=== PATIENT | female | born 1985 | race Caucasian/White ===

== ENCOUNTER 2017-04-15 13:11 | Emergency (ER) | payer BC ==
--- NOTE | 2017-04-15 13:56 | PD ---
HPI Chief Complaint Leaking fluid Date Seen: Apr 15, 2017 (Cary Alberts MD, R3) Travel History International Travel<30 Days: No Contact w/Intl Traveler<30Days: No (Cary Alberts MD, R3) History of Present Illness HPI Patient is a 31-year-old at 38-4/7 weeks gestation who presents today for leaking fluid. She states that last night she felt a puddle around 5 PM and has been ranging since then. She denies any vaginal bleeding or contractions. Positive movement. care with Dr. Sanchez. (Cary Alberts MD, R3) History Past Medical History Medical History: Denies Significant Hx (Cary Alberts MD, R3) Obstetric History Obstetric History (Cary Alberts MD, R3) Past Surgical History Surgical History: No Previous Surgery (Cary Alberts MD, R3) Family History Family History: Negative (Cary Alberts MD, R3) Social History Alcohol Use: No Tobacco Use: No Substance Abuse: No (Cary Alberts MD, R3) Allergies-Medications (Allergen,Severity, Reaction): Coded Allergies: No Known Allergies (Unverified , 04/15/17) Home Meds Active Scripts Metronidazole (Metronidazole) 500 Mg Tab, 500 MG PO BID for Infection, #14 TAB 0 Refills Prov:Cary Alberts MD, R3 04/15/17 Review of Systems Except as stated in HPI: all other systems reviewed are Neg General / Constitutional: No: Fever, Chills Eyes: No: Blurred Vision, Visual changes HENT: No: Headaches Cardiovascular: No: Chest Pain or Discomfort, Palpitations Respiratory: No: Cough, Short of Breath Gastrointestinal: No: Nausea, Vomiting, Abdominal Pain Genitourinary: Discharge, No: Dysuria, Hematuria, Pelvic Pain, Vaginal Bleeding Musculoskeletal: No: Edema Psychiatric: No: Substance Abuse (Cary Alberts MD, R3) Physical Exam Narrative GENERAL: Well-nourished, well-developed patient. SKIN: Warm and dry. HEAD: Normocephalic and atraumatic. EYES: No scleral icterus. No injection or drainage. ENT: No nasal drainage noted. Mucous membranes pink. Airway patent. NECK: Supple, trachea midline. No JVD. CARDIOVASCULAR: Regular rate and rhythm without murmurs, gallops, or rubs. RESPIRATORY: Breath sounds equal bilaterally. No accessory muscle use. ABDOMEN/GI: Abdomen soft, non-tender, bowel sounds present, no rebound, no guarding Gravid to 38 weeks size GENITOURINARY: Whitish/clear vaginal discharge with fishy odor External Genitalia: intact and normal in appearance BUS glands: normal Cervix: midposition Dilatation: 2 Effacement: 50 Station: -2 Presentation: vertex Membranes: intact Uterine Contractions: none FHT's: Category: I Baseline: 140 Reactive: + Variability: moderate Decels: none EXTREMITIES: No cyanosis or edema. BACK: Nontender without obvious deformity. No CVA tenderness. NEUROLOGICAL: Awake and alert. Motor and sensory grossly within normal limits. Normal speech. (Cary Alberts MD, R3) Data Data Vital Signs Reviewed: Yes Orders Orders Vital Signs (Adult) .ON ADMISSION (04/15/17 13:49) ^ Labor Status (04/15/17 13:49) ^ Non Stress Test (04/15/17 13:49) ^ Hydration (04/15/17 13:49) Pamg-1 Test .ONCE (04/15/17 13:49) (Cary Alberts MD, R3) MDM Medical Record Reviewed: Yes Narrative Course / MDM 31 year old at 38-4/7 weeks gestation. 1. IUP- Category I tracing, reassuring. 2. Leaking fluid- Amnisure negative, cervix 2/50/-2. Not in labor. Urine dip positive for large leuk esterace, large blood, trace protein, moderate bilirubin. No urinary symptoms, likely contaminant. 3. Vaginal discharge- physical exam consistent with BV. Will treat with Flagyl 500mg PO Q12H x 7 days. yadira Hammond (Cary Alberts MD, R3) Attending Attestation Patient seen and evaluated with resident under direct supervision, agree with assessment and plan. (Brayden Hammond MD) Diagnosis Diagnosis: Primary Impression: Bacterial vaginosis Additional Impression: 38 weeks gestation of Disposition: DISCHARGE HOME Condition: Stable Scripts Metronidazole (Metronidazole) 500 Mg Tab 500 MG PO BID for Infection, #14 TAB 0 Refills Prov: Cary Alberts MD, R3 04/15/17 Cary Alberts MD, R3 Apr 15, 2017 13:56 Brayden Hammond MD Apr 15, 2017 14:37
[2017-04-15] MEDS ORDERED: METR500T10 PO (14:01)
== END 2017-04-15 14:10 | disposition home or self-care (01) ==
LOC: HOBED 13:11
DX: O23.593 Infection of other part of genital tract in pregnancy, third trimester (principal); Z3A.38 38 weeks gestation of pregnancy; Z79.899 Other long term (current) drug therapy
CPT/HCPCS: 84112; 99283

== ENCOUNTER 2017-04-16 00:35 | Emergency (ER) | payer BC ==
[~2017-04-16 00:35] MED LIST: METR500T10 PO
--- NOTE | 2017-04-16 01:27 | PD ---
HPI Chief Complaint Contractions Date Seen: Apr 16, 2017 Time Seen: 01:00 Travel History International Travel<30 Days: No Contact w/Intl Traveler<30Days: No Known Affected Area: No History of Present Illness HPI 31-year-old 1 at 38-4/7 weeks' gestation who presented for increased contractions. Patient had been evaluated earlier for possible leakage of fluid which was ruled out. She was diagnosed with bacterial vaginosis at that time. She reports that she did get her medicine has taken 1 dose. After leaving earlier she states she began having contractions every 3 minutes. She denies any bleeding or leakage of fluid. Weeks Gestation: 38 Para: 0 : 1 History Past Medical History Medical History: Denies Significant Hx Obstetric History Obstetric History Primigravida Past Surgical History Surgical History: No Previous Surgery Family History Family History: Negative Social History Alcohol Use: No Tobacco Use: No Substance Abuse: No Allergies-Medications (Allergen,Severity, Reaction): Coded Allergies: No Known Allergies (Unverified , 04/15/17) Home Meds Active Scripts Metronidazole (Metronidazole) 500 Mg Tab, 500 MG PO BID for Infection, #14 TAB 0 Refills Prov:Cary Alberts MD, R3 04/15/17 Review of Systems Except as stated in HPI: all other systems reviewed are Neg Physical Exam Narrative GENERAL: Well-nourished, well-developed patient. SKIN: Warm and dry. HEAD: Normocephalic and atraumatic. EYES: No scleral icterus. No injection or drainage. ENT: No nasal drainage noted. Mucous membranes pink. Airway patent. NECK: Supple, trachea midline. No JVD. CARDIOVASCULAR: Regular rate and rhythm without murmurs, gallops, or rubs. RESPIRATORY: Breath sounds equal bilaterally. No accessory muscle use. BREASTS: Bilateral exam showed no masses , no retractions, no nipple discharge. ABDOMEN/GI: Abdomen soft, non-tender, bowel sounds present, no rebound, no guarding Gravid to [-] weeks size Fundal Height: [-] GENITOURINARY: External Genitalia: intact and normal in appearance BUS glands: [-] Cervix: [-] Dilatation: [-2] Effacement: [-70] Station: [-2-] Presentation: [Vertex-] Membranes: [intact ] Uterine Contractions: [-] FHT's: Category: [-] Baseline: [-] Reactive: [-Yes] Variability: [-] Decels: [-] EXTREMITIES: No cyanosis or edema. BACK: Nontender without obvious deformity. No CVA tenderness. NEUROLOGICAL: Awake and alert. Motor and sensory grossly within normal limits. Five out of 5 muscle strength in all muscle groups. Normal speech. Data Data Vital Signs Reviewed: Yes MDM Medical Record Reviewed: Yes Narrative Course / MDM Assessment: Primipara at 38+ weeks gestation with mild irregular contractions without cervical change Plan: The patient was given the option of staying and walking her since proceeding home for further observation of her contraction activity and she opted to go home. Diagnosis Diagnosis: Primary Impression: 38 weeks gestation of Additional Impression: Irregular contractions Disposition: DISCHARGE HOME Condition: Good Brayden Hammond MD Apr 16, 2017 01:26
== END 2017-04-16 01:47 | disposition home or self-care (01) ==
LOC: HOBED 00:35
DX: O47.1 False labor at or after 37 completed weeks of gestation (principal); Z3A.38 38 weeks gestation of pregnancy
CPT/HCPCS: 59025

== ENCOUNTER 2017-04-16 16:15 | Inpatient (IN) | payer BC ==
[2017-04-16] VITALS (85 sets, daily range): BP systolic 89–171; BP diastolic 44–93; PULSE 105–171; RESP 16–20; TEMP 97.6–101.8; O2SAT 92–100
[~2017-04-16] VITALS: Ht 165.1 cm; Wt 125.0 kg
[2017-04-16] MEDS ORDERED: LACTATED RINGER'S 1000 ML INJ 1,000 ML IV PRN (16:57)
[2017-04-16] MEDS ORDERED: LIDOCAINE HCL 1% 50 ML VIAL I-DERMAL PRN (17:00)
[2017-04-16] MEDS ORDERED: MINERAL OIL 10 ML VIAL TOPICAL PRN (17:00)
[2017-04-16] MEDS ORDERED: SODIUM CHLORID 0.9% 500 ML INJ 500 ML OTHER PRN (17:00)
[2017-04-16] MEDS ORDERED: ONDANSETRON HCL 4 MG/2 ML VIAL IV PRN (17:00)
[2017-04-16] MEDS ORDERED: LIDOCAINE HCL 1% 50 ML VIAL INFIL PRN (17:00)
[2017-04-16] MEDS ORDERED: CITRIC ACID-SODIUM CITRATE LIQ 30 ML UDC PO SCH (17:00)
[2017-04-16] MEDS ORDERED: OXYTOCIN 30 UNITS-500ML PREMIX 500 ML IV ONE (17:00)
--- NOTE | 2017-04-16 17:02 | HHI.HP ---
History & Physical H&P HPI History of Present Illness History of Present Illness HPI Chief Complaint Contractions Date Seen: Apr 16, 2017 Time Seen: 16:45 Travel History International Travel<30 Days: No Contact w/Intl Traveler<30Days: No Known Affected Area: No History of Present Illness HPI 31-year-old 1 at 38-4/7 weeks' gestation who presented for increased contractions. Patient had been evaluated earlier for possible leakage of fluid which was ruled out yesterday. She was evaluated again this am and no active labor. This afternoon the contractions are now 3-5 min and stronger. Unsure if any LOF. Scant bloody show. She was diagnosed with bacterial vaginosis yesterday and is on metronidazole. S Weeks Gestation: 38 Para: 0 : 1 History (Limited) History Past Medical History Medical History: Asthma: occasional albuterol usage prn CHTN - no medications, baseline labs and BP WNL Obesity Obstetric History Obstetric History Primigravida Past Surgical History Surgical History: No Previous Surgery Family History Family History: Negative Social History Alcohol Use: No Tobacco Use: No Substance Abuse: No Allergies-Medications Allergies-Medications (Allergen,Severity, Reaction): Coded Allergies: No Known Allergies (Unverified , 04/15/17) Home Meds Active Scripts Metronidazole (Metronidazole) 500 Mg Tab, 500 MG PO BID for Infection, #14 TAB 0 Refills Prov:Cary Alberts MD, R3 04/15/17 ROS Review of Systems Except as stated in HPI: all other systems reviewed are Neg Physical Exam Physical Exam Narrative GENERAL: Well-nourished, well-developed patient. SKIN: Warm and dry. HEAD: Normocephalic and atraumatic. EYES: No scleral icterus. No injection or drainage. ENT: No nasal drainage noted. Mucous membranes pink. Airway patent. NECK: , trachea midline. No JVD. CARDIOVASCULAR: Regular rate and rhythm without murmurs, gallops, or rubs. RESPIRATORY: Breath sounds equal bilaterally. No accessory muscle use. ABDOMEN/GI: Abdomen soft, non-tender, no rebound, no guarding Gravid EFW: 3500g GENITOURINARY: SVE: 7/90/-2 TOCO: UC q 3-5 min FHT's: Category: I Baseline: 145 Reactive: [-Yes] Variability: mod Decels: [-] EXTREMITIES: No cyanosis or edema. BACK: Nontender without obvious deformity. No CVA tenderness. NEUROLOGICAL: Awake and alert. Motor and sensory grossly within normal limits. Normal speech. Data Data Data Vital Signs Reviewed: Yes First BP systolic elevated during UC. Repeat BPs serially MDM MDM Medical Record Reviewed: Yes Narrative Course / MDM Assessment: G1P @ 38w5d. Active labor. GBS negative - Oly for prophylaxis Maternal obesity hx of asthma, stable Hx of CHTN, asymptomatic. Normal BP this and no current medications. Baseline labs were WNL. watch BPs, if elevated sent CMP and management per protocol. Plan: Admit D/w Dr. Hossein Rutledge,Robina Sears MD, MD Apr 16, 2017 17:02
[2017-04-16] MEDS ORDERED: SODIUM CHLOR 0.9% 1000 ML INJ 1,000 ML OTHER PRN (17:17)
[2017-04-16 17:37] LABS: AUTOMATED NEUTROPHIL # 25.2 TH/MM3 (1.8-7.7); BASOPHIL # 0.1 TH/MM3 (0-0.2); BASOPHIL % 0.2 % (0.0-2.0); HEMATOCRIT 37.4 % (35.0-46.0); LYMPH % 4.1 % (9.0-44.0); LYMPHOCYTE # 1.2 TH/MM3 (1.0-4.8); MEAN CELL VOLUME 92.9 FL (80.0-100.0); MEAN CORPUSCULAR HEMOGLOBIN 30.5 PG (27.0-34.0); MEAN CORPUSCULAR HGB CONC 32.8 % (32.0-36.0); NEUT % 89.7 % (16.0-70.0); PLATELET COUNT 258 TH/MM3 (150-450); RED BLOOD COUNT 4.02 MIL/MM3 (4.00-5.30); WHITE BLOOD COUNT 28.1 TH/MM3 (4.0-11.0)
[2017-04-16 17:38] LABS: HEMO FLAGS AUTO DIFF
[2017-04-16] MEDS ORDERED: LACTATED RINGER'S 1000 ML INJ 1,000 ML IV SCH (18:00)
[2017-04-16] MEDS ORDERED: PENICILLIN G POTASSIUM INJ 5,000,000 UNITS in SODIUM CHLORIDE 0.9% INJ 100 ML IV ONE (18:00)
[2017-04-16 18:07] LABS: SCAN/DIFF AUTO DIFF CONFIRMED
[2017-04-16 18:33] LABS: ANION GAP 11 MEQ/L (5-15); AST (GOT) 13 U/L (15-37); BLOOD UREA NITROGEN 12 MG/DL (7-18); CHLORIDE 106 MEQ/L (98-107); GLOMERULAR FILTRATION RATE 86 ML/MIN (>89); POTASSIUM 3.9 MEQ/L (3.5-5.1); SODIUM (NA) 136 MEQ/L (136-145)
[2017-04-16 18:34] LABS: ALT (GPT) 14 U/L (10-53)
[2017-04-16 18:37] LABS: ALKALINE PHOSPHATASE 186 U/L (45-117); TOTAL BILIRUBIN ADULT 0.5 MG/DL (0.2-1.0)
[2017-04-16] MEDS ORDERED: fentaNYL 2MCG-BUPIV 0.125% INJ 100 ML ONE (18:55)
[2017-04-16] MEDS ORDERED: ePHEDrine/NS 25 MG/5 ML SYR ONE (18:56)
[2017-04-16] MEDS ORDERED: PENICILLIN G POTASSIUM INJ 2,500,000 UNITS in SODIUM CHLORIDE 0.9% INJ 100 ML IV SCH (22:00)
[2017-04-16] MEDS ORDERED: metroNIDAZOLE 500 MG TAB PO SCH (22:00)
[2017-04-17] VITALS (28 sets, daily range): BP systolic 85–142; BP diastolic 36–68; PULSE 85–159; RESP 16–18; TEMP 98–99.4; O2SAT 92–99
[2017-04-17] MEDS ORDERED: ceFAZolin INJ 1,000 MG VIAL ONE (00:57)
[2017-04-17] MEDS ORDERED: ACETAMINOPHEN 1000 MG/100 ML 100 ML IV ONE (00:57)
[2017-04-17] MEDS ORDERED: DICLOFENAC SODIUM 37.5 MG/ML VIAL IV PUSH ONE (00:57)
[2017-04-17] MEDS ORDERED: OXYTOCIN 10 UNIT/ML AMP ONE (00:57)
[2017-04-17] MEDS ORDERED: LIDOCAINE 2%/EPINEPHrine 1:100,000 20ML MDV NERV BLOCK ONE (01:00)
[2017-04-17] MEDS ORDERED: ceFAZolin 2 GM PREMIX 50 ML IV SCH (01:15)
[2017-04-17] MEDS ORDERED: LACTATED RINGER'S 1000 ML IV ONE (01:15)
[2017-04-17] MEDS ORDERED: CITRIC ACID-SODIUM CITRATE LIQ 30 ML UDC PO SCH (01:15)
[2017-04-17] MEDS ORDERED: LACTATED RINGER'S 1000 ML IV SCH (01:15)
[2017-04-17] MEDS ORDERED: LACTATED RINGER'S 1000 ML INJ 1,000 ML IV ONE ×2 (01:30→02:00)
[2017-04-17] MEDS ORDERED: OXYTOCIN 10 UNIT/ML AMP IV ONE (01:30)
[2017-04-17] MEDS ORDERED: ONDANSETRON HCL 4 MG/2 ML VIAL IV PUSH ONE (01:30)
[2017-04-17] MEDS ORDERED: ACETAMINOPHEN 1000 MG/100 ML VIAL IV ONE ×2 (01:30→02:00)
[2017-04-17] MEDS ORDERED: SIMETHICONE 80 MG CHEWABLE TAB PO PRN (02:00)
[2017-04-17] MEDS ORDERED: ZOLPIDEM TARTRATE 5 MG TAB PO PRN (02:00)
[2017-04-17] MEDS ORDERED: ONDANSETRON HCL 4 MG/2 ML VIAL IV PUSH PRN (02:00)
[2017-04-17] MEDS ORDERED: SODIUM CHLORIDE 0.9% FLUSH 10 ML FLUSH IV FLUSH PRN (02:00)
[2017-04-17] MEDS ORDERED: OXYTOCIN 30 UNITS-500ML PREMIX 500 ML IV ONE (02:00)
[2017-04-17] MEDS ORDERED: MORPHINE SULFATE PF 5 MG/10 ML VIAL ONE ×2 (02:00→04:12)
--- NOTE | 2017-04-17 02:08 | PD.OB.DELI ---
Procedure Note Section Procedure Performed by Jennifer Catalan Procedure: Primary Low Transverse Sec Indication for delivery: Nonreassuring heart tracing (arrest of descent, tachycardia) Previous condition: None Informed consent obtained: For procedure Confirmed correct: Time-out taken Anesthesia: Epidural Medication prior to procedure: As documented in eMAR Urinary catheter: Inserted using sterile technique Sterile preparation: Duraprep Position: Supine Operative Features Skin Incision: Pfannenstiel Uterine Incision: Low transverse w/knife / scissors Membranes Ruptured: Previously (+mec) Presentation: Vertex Delivery date: Apr 17, 2017 Delivery time: 01:28 Delivery of : Assisted (vacuum) : Male One Minute : 5 Five Minute : 8 Weight: 7-12 Status of : Nursery present (O2 via mask) Placenta delivered: Sent to pathology Estimated blood loss: 650cc Procedure tolerated: Well Maternal Condition: Stable Condition: Stable Procedure in detail see dictation Jennifer Catalan MD Apr 17, 2017 02:08
[2017-04-17] MEDS ORDERED: ONDANSETRON HCL 4 MG/2 ML VIAL ONE (04:12)
[2017-04-17] MEDS ORDERED: LACTATED RINGER'S 1000 ML INJ 1,000 ML IV SCH (06:58)
--- NOTE | 2017-04-17 08:56 | HHI.OB ---
Subjective Post Operative Day: 0 Remarks doing well, some itching on face Objective Vitals/I&O Vital Signs Date Time Temp Pulse Resp B/P (MAP) Pulse Ox O2 Delivery O2 Flow Rate FiO2 04/17/17 04:20 115/53 (73) 04/17/17 04:20 98.3 04/17/17 04:20 97 18 97 04/17/17 04:15 108/36 (60) 04/17/17 03:20 95 18 98 04/17/17 03:20 98.4 04/17/17 03:20 122/58 (79) 04/17/17 03:05 98 18 122/57 (78) 04/17/17 03:05 98 04/17/17 03:00 18 04/17/17 02:50 94 18 119/59 (79) 04/17/17 02:50 99 04/17/17 02:35 97 16 107/53 (71) 04/17/17 02:35 99 04/17/17 02:30 101 100/58 (72) 04/17/17 02:24 99 04/17/17 02:23 103 118/54 (75) 04/17/17 02:15 98.4 114 18 04/17/17 02:05 112/52 (72) 04/17/17 02:00 18 99 04/17/17 02:00 109 04/17/17 02:00 118/62 (80) 04/17/17 01:28 92 30 04/17/17 00:40 118 04/17/17 00:40 117 04/17/17 00:35 125 04/17/17 00:35 123 04/17/17 00:31 135 142/63 (89) 04/17/17 00:30 123 04/17/17 00:30 123 04/17/17 00:25 125 04/17/17 00:20 159 04/17/17 00:15 129 04/17/17 00:10 120 04/17/17 00:05 124 04/17/17 00:00 121 04/16/17 23:55 126 04/16/17 23:50 142 04/16/17 23:45 120 127/58 (81) 04/16/17 23:45 108 04/16/17 23:40 107 04/16/17 23:36 98.3 8/26/17 23:35 116 04/16/17 23:30 105 04/16/17 23:30 131 04/16/17 23:30 130 04/16/17 23:30 16 04/16/17 23:25 124 04/16/17 23:25 123 04/16/17 23:20 124 04/16/17 23:20 124 04/16/17 23:15 121 122/52 (75) 04/16/17 23:15 121 04/16/17 23:15 16 04/16/17 23:15 130 04/16/17 23:00 120 124/53 (76) 04/16/17 23:00 121 04/16/17 23:00 18 04/16/17 22:55 143 04/16/17 22:55 125 04/16/17 22:50 124 04/16/17 22:50 124 04/16/17 22:48 123 107/56 (73) 04/16/17 22:46 132 89/59 (69) 04/16/17 22:45 114 04/16/17 22:45 18 04/16/17 22:40 114 04/16/17 22:35 122 04/16/17 22:31 124 123/61 (81) 04/16/17 22:30 18 04/16/17 22:30 120 04/16/17 22:30 117 04/16/17 22:25 119 100 04/16/17 22:25 119 04/16/17 22:20 113 100 04/16/17 22:20 112 04/16/17 22:16 128/50 (76) 04/16/17 22:16 110 04/16/17 22:15 122 04/16/17 22:15 131 100 04/16/17 22:10 137 04/16/17 22:10 132 100 04/16/17 22:05 114 100 04/16/17 22:05 115 04/16/17 22:00 148 04/16/17 22:00 121 100 04/16/17 22:00 98.0 04/16/17 22:00 117 04/16/17 22:00 135/93 (107) 04/16/17 21:55 116 04/16/17 21:55 115 100 04/16/17 21:50 110 04/16/17 21:50 111 100 04/16/17 21:45 122 100 04/16/17 21:45 124 04/16/17 21:45 118 04/16/17 21:45 122/62 (82) 04/16/17 21:40 120 04/16/17 21:40 119 100 04/16/17 21:35 111 04/16/17 21:35 109 100 04/16/17 21:30 118 107/49 (68) 04/16/17 21:30 120 04/16/17 21:30 100 04/16/17 21:30 121 04/16/17 21:25 120 100 04/16/17 21:25 121 04/16/17 21:23 16 04/16/17 21:23 123 109/58 (75) 04/16/17 21:20 122 04/16/17 21:20 122 04/16/17 21:20 100 04/16/17 21:15 127 04/16/17 21:15 100 04/16/17 21:15 115 16 120/53 (75) 04/16/17 21:15 119 04/16/17 21:10 118 04/16/17 21:10 100 04/16/17 21:10 118 04/16/17 21:05 123 04/16/17 21:05 123 04/16/17 21:05 100 04/16/17 21:00 100 04/16/17 21:00 118 04/16/17 21:00 115 04/16/17 21:00 115 134/59 (84) 04/16/17 20:55 125 04/16/17 20:55 100 04/16/17 20:55 123 04/16/17 20:54 18 04/16/17 20:50 100 04/16/17 20:50 129 04/16/17 20:50 129 04/16/17 20:45 100 04/16/17 20:45 171 04/16/17 20:45 129 18 118/49 (72) 04/16/17 20:45 127 04/16/17 20:40 137 04/16/17 20:40 136 04/16/17 20:40 100 04/16/17 20:35 121 04/16/17 20:35 100 04/16/17 20:35 121 04/16/17 20:31 111/69 (83) 04/16/17 20:31 113 04/16/17 20:30 99.5 04/16/17 20:30 18 04/16/17 20:30 114 04/16/17 20:30 113 04/16/17 20:30 100 04/16/17 20:25 120 04/16/17 20:25 100 04/16/17 20:25 118 04/16/17 20:20 116 04/16/17 20:20 116 04/16/17 20:20 99 04/16/17 20:16 134 114/46 (68) 04/16/17 20:15 98 04/16/17 20:15 18 04/16/17 20:15 116 04/16/17 20:15 116 04/16/17 20:10 124 04/16/17 20:10 122 04/16/17 20:06 127 04/16/17 20:06 127/44 (71) 04/16/17 20:05 123 04/16/17 20:05 123 04/16/17 20:01 135 143/45 (77) 04/16/17 20:00 20 04/16/17 20:00 119 04/16/17 19:55 124 04/16/17 19:55 122 04/16/17 19:50 123 04/16/17 19:50 123 04/16/17 19:45 119 04/16/17 19:45 117 154/71 (98) 04/16/17 19:45 121 04/16/17 19:45 20 04/16/17 19:40 109 04/16/17 19:40 110 04/16/17 19:35 112 04/16/17 19:35 113 04/16/17 19:30 108 140/72 (94) 04/16/17 19:30 108 04/16/17 19:30 20 04/16/17 19:30 108 04/16/17 19:25 112 04/16/17 19:25 113 04/16/17 19:21 111 144/76 (98) 04/16/17 19:20 114 04/16/17 19:20 116 04/16/17 19:15 121 04/16/17 19:10 115 04/16/17 19:10 110 120/79 (93) 04/16/17 19:10 112 04/16/17 19:05 126 04/16/17 19:05 125 04/16/17 19:03 123 142/87 (105) 04/16/17 19:00 128 04/16/17 19:00 124 04/16/17 18:55 18 04/16/17 18:45 16 04/16/17 18:40 114 04/16/17 18:35 110 04/16/17 18:30 108 04/16/17 18:25 114 04/16/17 18:20 114 04/16/17 18:15 109 151/71 (97) 04/16/17 18:15 106 04/16/17 18:11 101.8 18 04/16/17 18:10 114 04/16/17 18:05 111 04/16/17 18:00 108 04/16/17 16:33 128 171/78 (109) 04/16/17 16:32 97.6 18 Result Diagram: 04/16/17 1725 04/16/17 1725 Objective Remarks GENERAL: Well-nourished, well-developed patient. CARDIOVASCULAR: Regular rate and rhythm without murmurs, gallops, or rubs. RESPIRATORY: Breath sounds equal bilaterally. No accessory muscle use. ABDOMEN/GI: Abdomen soft, non-tender, bowel sounds present. Incision: dressing Clean, dry and intact. Fundus: Firm, non-tender at umbilicus. GENITOURINARY: Light to moderate bleeding. EXTREMITIES: No cyanosis or edema, non-tender, without signs of DVT. Medications and IVs Current Medications Medications (Trade) Dose Ordered Sig/Lalita Route Start Time Stop Time Status Last Admin Lactated Ringer's 1,000 ml @ 100 mls/hr Q10H IV 04/17/17 06:58 04/18/17 02:57 Oxytocin 500 ml @ 100 mls/hr UNSCH X1 PRN IV 04/17/17 12:00 04/18/17 11:59 (NS Flush) 2 ml BID IV FLUSH 04/17/17 09:00 (NS Flush) 2 ml UNSCH PRN IV FLUSH 04/17/17 02:00 (Mylicon Chew) 80 mg QID PRN PO 04/17/17 02:00 (Motrin) 600 mg Q6H PRN PO 04/17/17 02:00 (Percocet 5-325 Mg) 1 tab Q4H PRN PO 04/17/17 02:00 (Percocet 5-325 Mg) 2 tab Q4H PRN PO 04/17/17 02:00 (Damari-Colace) 2 tab Q12H PRN PO 04/17/17 02:00 (Ambien) 5 mg HS PRN PO 04/17/17 02:00 (M-M-R Ii Inj) 0.5 ml ONCE ONCE SQ 04/18/17 16:00 04/18/17 16:01 (Boostrix Inj) 0.5 ml ONCE ONCE IM 04/18/17 16:00 04/18/17 16:01 (Zofran Inj) 4 mg Q6H PRN IV PUSH 04/17/17 02:00 (Heparin Inj) 5,000 units Q12HR SQ 04/17/17 09:00 Assessment/Plan Problem List: (1) delivery delivered ICD Codes: O82 - Encounter for delivery without indication Status: Acute Assessment and Plan POD #0, s/p primary LSTC for arrest of descent, tachycardia, routine post op care, OOB this afternoon, heparin SQ (obesity), remove shari POD #3 Discharge Planning POD #3 Attending Attestation pt seen by Jennifer House MD Apr 17, 2017 08:56
[2017-04-17] MEDS ORDERED: SODIUM CHLORIDE 0.9% FLUSH 10 ML FLUSH IV FLUSH SCH (09:00)
[2017-04-17] MEDS ORDERED: EPIDURAL-DO NOT ADMINISTER ANTICOAGULANTS PRN (10:45)
[2017-04-17] MEDS ORDERED: EPIDURAL-NO SYSTEMIC NARCOTICS PRN (10:45)
[2017-04-17] MEDS ORDERED: NO SYSTEM NARCOTICS PRN (10:45)
[2017-04-17] MEDS ORDERED: EPIDURAL-NALOXONE HCL 0.4 MG/ML AMP IV PRN (10:45)
[2017-04-17] MEDS ORDERED: EPIDURAL-DIPHENHYDRAMINE HCL 50 MG/ML VIAL IV PUSH PRN (10:45)
[2017-04-17] MEDS ORDERED: EPIDURAL-DIPHENHYDRAMINE HCL 50 MG CAP PO PRN (10:45)
[2017-04-17] MEDS ORDERED: ePHEDrine/NS 25 MG/5 ML SYR IV PRN (10:45)
[2017-04-17] MEDS ORDERED: fentaNYL 2MCG-BUPIV 0.125% 100 ML EPIDURAL SCH (10:45)
[2017-04-17] MEDS ORDERED: DO NOT ADMINISTER ANTICOAGULANTS PRN (10:45)
[2017-04-17] MEDS ORDERED: OXYTOCIN 30 UNITS-500ML PREMIX 500 ML IV PRN (12:00)
[2017-04-17] MEDS: IBUPROFEN 600 MG TAB PO PRN (14:17)
[2017-04-18 05:46] LABS: AUTOMATED NEUTROPHIL # 12.9 TH/MM3 (1.8-7.7); BASOPHIL % 0.1 % (0.0-2.0); EOSINOPHIL % 0.2 % (0.0-4.0); HEMATOCRIT 27.4 % (35.0-46.0); HEMO FLAGS DIFF FINAL; LYMPH % 11.6 % (9.0-44.0); LYMPHOCYTE # 1.8 TH/MM3 (1.0-4.8); MEAN CELL VOLUME 93.5 FL (80.0-100.0); MEAN CORPUSCULAR HEMOGLOBIN 31.2 PG (27.0-34.0); MEAN CORPUSCULAR HGB CONC 33.4 % (32.0-36.0); MONO % 4.3 % (0.0-8.0); NEUT % 83.8 % (16.0-70.0); PLATELET COUNT 190 TH/MM3 (150-450); RED BLOOD COUNT 2.93 MIL/MM3 (4.00-5.30); RED CELL DISTRIBUTION WIDTH 14.1 % (11.6-17.2); WHITE BLOOD COUNT 15.4 TH/MM3 (4.0-11.0)
[2017-04-18] MEDS: oxyCODONE/ACETAMINOPHEN 5 MG/325 MG TAB PO PRN ×4 (06:10→21:10)
[2017-04-18] MEDS: IBUPROFEN 600 MG TAB PO PRN ×3 (06:10→21:10)
[2017-04-18] MEDS: HEPARIN SODIUM - SQ 10,000 UNITS/ML VIAL SQ SCH ×2 (09:00→21:10)
[2017-04-18 10:18] VITALS: BP 118/76; PULSE 105; RESP 16; TEMP 98.2
[2017-04-18] MEDS: DOCUSATE SODIUM 50 MG/SENNA 8.6 MG TAB PO PRN (10:51)
--- NOTE | 2017-04-18 11:26 | HHI.OB ---
Subjective Post Operative Day: 1 Objective Vitals/I&O Vital Signs Date Time Temp Pulse Resp B/P (MAP) Pulse Ox O2 Delivery O2 Flow Rate FiO2 04/18/17 10:18 98.2 105 16 118/76 (90) 04/17/17 23:55 100 18 116/63 (80) 04/17/17 20:30 85 18 85/42 (56) 04/17/17 20:30 98.0 04/17/17 16:35 98.3 102 18 114/68 (83) 04/17/17 12:30 99.4 04/17/17 12:30 114 18 102/54 (70) Result Diagram: 04/18/17 0455 04/16/17 0594 Objective Remarks GENERAL: Well-nourished, well-developed patient. CARDIOVASCULAR: Regular rate and rhythm without murmurs, gallops, or rubs. RESPIRATORY: Breath sounds equal bilaterally. No accessory muscle use. ABDOMEN/GI: Abdomen soft, non-tender, bowel sounds present. Incision: Clean, dry and intact. shari. Fundus: Firm, non-tender at umbilicus. GENITOURINARY: Light to moderate bleeding. EXTREMITIES: No cyanosis or edema, non-tender, without signs of DVT. Medications and IVs Current Medications Medications (Trade) Dose Ordered Sig/Lalita Route Start Time Stop Time Status Last Admin Oxytocin 500 ml @ 100 mls/hr UNSCH X1 PRN IV 04/17/17 12:00 04/18/17 11:59 (NS Flush) 2 ml BID IV FLUSH 04/17/17 09:00 (NS Flush) 2 ml UNSCH PRN IV FLUSH 04/17/17 02:00 (Mylicon Chew) 80 mg QID PRN PO 04/17/17 02:00 (Motrin) 600 mg Q6H PRN PO 04/17/17 02:00 04/18/17 06:10 (Percocet 5-325 Mg) 1 tab Q4H PRN PO 04/17/17 02:00 04/18/17 06:10 (Percocet 5-325 Mg) 2 tab Q4H PRN PO 04/17/17 02:00 04/18/17 10:51 (Damari-Colace) 2 tab Q12H PRN PO 04/17/17 02:00 04/18/17 10:51 (Ambien) 5 mg HS PRN PO 04/17/17 02:00 (M-M-R Ii Inj) 0.5 ml ONCE ONCE SQ 04/18/17 16:00 04/18/17 16:01 (Boostrix Inj) 0.5 ml ONCE ONCE IM 04/18/17 16:00 04/18/17 16:01 (Zofran Inj) 4 mg Q6H PRN IV PUSH 04/17/17 02:00 04/17/17 11:04 (Heparin Inj) 5,000 units Q12HR SQ 04/17/17 09:00 Fentanyl/ Bupivacaine HCl 100 ml @ 0 mls/hr TITRATE EPIDURAL 04/17/17 10:45 Assessment/Plan Problem List: (1) delivery delivered ICD Codes: O82 - Encounter for delivery without indication Status: Acute Assessment and Plan POD #1, s/p primary LSTC for arrest of descent, tachycardia, routine post op care, OOB this afternoon, heparin SQ (obesity), remove shari POD #3 d/w pt stay until POD#3 Discharge Planning POD #3 (Tuesday) Trice Cordero MD Apr 18, 2017 11:26
[2017-04-18] MEDS ORDERED: MEASLES, MUMPS, RUBELLA VACCINE 0.5 ML VIAL SQ ONE (16:00)
[2017-04-18] MEDS ORDERED: DIPHTH/TETANUS/ACEL PERTUSSIS (BOOSTER) 0.5 ML VIAL/PFS IM ONE (16:00)
[2017-04-18 20:10] VITALS: BP 120/63; PULSE 84; RESP 17; TEMP 97.8
[2017-04-19] MEDS: DOCUSATE SODIUM 50 MG/SENNA 8.6 MG TAB PO PRN ×2 (03:36→18:27)
[2017-04-19] MEDS: oxyCODONE/ACETAMINOPHEN 5 MG/325 MG TAB PO PRN ×4 (03:37→18:26)
[2017-04-19] MEDS: IBUPROFEN 600 MG TAB PO PRN ×2 (03:37→18:26)
[2017-04-19 08:40] VITALS: BP 117/71; PULSE 80; RESP 20; TEMP 97.8
--- NOTE | 2017-04-19 08:55 | HHI.OB ---
Subjective Post Operative Day: 2 Remarks doing well post op day 2 did not descend on heparin BID ambulating well pain up today Objective Vitals/I&O Vital Signs Date Time Temp Pulse Resp B/P (MAP) Pulse Ox O2 Delivery O2 Flow Rate FiO2 04/18/17 20:10 97.8 84 17 120/63 (82) 04/18/17 10:18 98.2 105 16 118/76 (90) Result Diagram: 04/18/17 0455 04/16/17 1725 Objective Remarks GENERAL: Well-nourished, well-developed patient. CARDIOVASCULAR: Regular rate and rhythm without murmurs, gallops, or rubs. RESPIRATORY: Breath sounds equal bilaterally. No accessory muscle use. ABDOMEN/GI: Abdomen soft, non-tender, bowel sounds present. Incision: Clean, dry and intact. shari. Fundus: Firm, non-tender at umbilicus. GENITOURINARY: Light to moderate bleeding. EXTREMITIES: No cyanosis or edema, non-tender, without signs of DVT. Medications and IVs Current Medications Medications (Trade) Dose Ordered Sig/Lalita Route Start Time Stop Time Status Last Admin (NS Flush) 2 ml BID IV FLUSH 04/17/17 09:00 (NS Flush) 2 ml UNSCH PRN IV FLUSH 04/17/17 02:00 (Mylicon Chew) 80 mg QID PRN PO 04/17/17 02:00 (Motrin) 600 mg Q6H PRN PO 04/17/17 02:00 04/19/17 03:37 (Percocet 5-325 Mg) 1 tab Q4H PRN PO 04/17/17 02:00 04/19/17 03:37 (Percocet 5-325 Mg) 2 tab Q4H PRN PO 04/17/17 02:00 04/19/17 07:44 (Damari-Colace) 2 tab Q12H PRN PO 04/17/17 02:00 04/19/17 03:36 (Ambien) 5 mg HS PRN PO 04/17/17 02:00 (Zofran Inj) 4 mg Q6H PRN IV PUSH 04/17/17 02:00 04/17/17 11:04 (Heparin Inj) 5,000 units Q12HR SQ 04/17/17 09:00 04/18/17 21:10 Fentanyl/ Bupivacaine HCl 100 ml @ 0 mls/hr TITRATE EPIDURAL 04/17/17 10:45 Assessment/Plan Problem List: (1) delivery delivered ICD Codes: O82 - Encounter for delivery without indication Status: Acute Assessment and Plan POD 2 post op anemia on heparin prophylaxis doing well Discharge Planning POD #3 (Tuesday) Karen Sanchez MD Apr 19, 2017 08:55
[2017-04-19] MEDS ORDERED: KETOROLAC TROMETHAMINE 60 MG/2 ML (IM) VIAL IM ONE (10:00)
[2017-04-19] MEDS ORDERED: IRON SUCROSE 100 MG/5 ML VIAL IV PUSH ONE (10:00)
--- NOTE | 2017-04-19 10:07 | MP ---
cc: ERIC CATALAN DATE OF SURGERY 04/17/2017 PREOPERATIVE DIAGNOSES Intrauterine at term. Arrest of descent. tachycardia. POSTOPERATIVE DIAGNOSES Intrauterine at term. Arrest of descent. tachycardia. PROCEDURE Primary lower segment transverse section via Pfannenstiel skin incision. SURGEON Dr. Catalan ANESTHESIA Epidural. FLUIDS 2000 cc crystalloid. ESTIMATED BLOOD LOSS 650 cc URINE OUTPUT 150 cc, bloody at the end of the procedure. FINDINGS A live male was delivered, vertex presentation, Apgars 5 at one minute, 8 at five minutes. weight 7 pounds, 12 ounces. PROCEDURE The patient was taken to the operating room where epidural anesthesia was found to be adequate. She was then prepped and draped in a normal sterile fashion in the dorsal supine position. A Pfannenstiel skin incision was made with a scalpel and carried down to the underlying layer of fascia. The fascia was nicked in the midline. The incision was extended laterally with curved Peck scissors. Attention was turned to the inferior aspect of the incision which was grasped with Clifford clamps, elevated and the rectus muscles dissected off sharply. Attention was turned to the superior aspect of the incision which was grasped with Clifford clamps, elevated and the rectus muscles dissected off sharply. The rectus muscles were in the midline. The peritoneum was identified and entered with blunt dissection. This incision was extended superiorly and inferiorly with good visualization of the bladder. The bladder blade was inserted. The vesicouterine peritoneum was identified, grasped with pickups and entered sharply with Metzenbaum scissors. This incision was extended laterally and the bladder flap created digitally. The lower uterine segment was incised in a transverse fashion with a scalpel. Meconium-stained stained fluid was noted. The incision was extended laterally with bandage scissors. The cord was noted to be presenting at the incision. The vertex was then delivered with vacuum assistance. Difficulty was encountered delivering the shoulders due to the patient's pannus but the shoulders were delivered atraumatically. The cord was clamped x 2 and cut. The was handed off to the awaiting nurse. The placenta was delivered manually. The uterus was cleared of all clots and debris. The uterine incision was repaired in two layers with one Vicryl. Hemostasis was assured. The gutters were cleared of all clots and debris. The peritoneum was reapproximated in the midline with a single suture of 3-0 chromic. The fascia was reapproximated in a running fashion with 0 Vicryl. Two interrupted sutures of 3-0 chromic were used to close the space in the patient's subcutaneous layer. The skin incision was closed with shari. A pressure dressing was applied. The sponge, lap, needle and instrument counts were correct x 3. The patient was transferred to the recovery room in stable condition. Eric Catalan MD CKB/SSB /2:01 AM /9:59 AM
[2017-04-19] MEDS ORDERED: IRON SUCROSE INJ 200 MG in SODIUM CHLORIDE 0.9% INJ 100 ML IV ONE (11:00)
[2017-04-19] MEDS: HEPARIN SODIUM - SQ 10,000 UNITS/ML VIAL SQ SCH ×2 (11:19→21:32)
[2017-04-19 21:30] VITALS: BP 124/66; PULSE 76; RESP 18; TEMP 98
[2017-04-19] MEDS: FERROUS SULFATE 325 MG (65 MG ELEMENTAL IRON) TAB PO SCH (21:32)
[2017-04-20 01:00] VITALS: BP 133/79; PULSE 95; RESP 16; TEMP 97.8
[2017-04-20] MEDS: IBUPROFEN 600 MG TAB PO PRN ×3 (01:00→12:48)
[2017-04-20] MEDS: oxyCODONE/ACETAMINOPHEN 5 MG/325 MG TAB PO PRN ×2 (01:00→06:38)
[2017-04-20] MEDS: DOCUSATE SODIUM 50 MG/SENNA 8.6 MG TAB PO PRN (06:36)
--- NOTE | 2017-04-20 08:18 | HHI.OB ---
Subjective Post Operative Day: 3 Remarks doing well nursing and ambulating ready for discharge Objective Vitals/I&O Vital Signs Date Time Temp Pulse Resp B/P (MAP) Pulse Ox O2 Delivery O2 Flow Rate FiO2 04/20/17 01:00 133/79 (97) 04/20/17 01:00 97.8 95 16 04/19/17 21:30 98.0 76 18 124/66 (85) 04/19/17 08:40 97.8 80 20 117/71 (86) Result Diagram: 04/18/17 0455 04/16/17 1725 Objective Remarks GENERAL: Well-nourished, well-developed patient. CARDIOVASCULAR: Regular rate and rhythm without murmurs, gallops, or rubs. RESPIRATORY: Breath sounds equal bilaterally. No accessory muscle use. ABDOMEN/GI: Abdomen soft, non-tender, bowel sounds present. Incision: Clean, dry and intact. shari. Fundus: Firm, non-tender at umbilicus. GENITOURINARY: Light to moderate bleeding. EXTREMITIES: No cyanosis or edema, non-tender, without signs of DVT. Medications and IVs Current Medications Medications (Trade) Dose Ordered Sig/Lalita Route Start Time Stop Time Status Last Admin (NS Flush) 2 ml BID IV FLUSH 04/17/17 09:00 (NS Flush) 2 ml UNSCH PRN IV FLUSH 04/17/17 02:00 (Mylicon Chew) 80 mg QID PRN PO 04/17/17 02:00 (Motrin) 600 mg Q6H PRN PO 04/17/17 02:00 04/20/17 06:37 (Percocet 5-325 Mg) 1 tab Q4H PRN PO 04/17/17 02:00 04/19/17 03:37 (Percocet 5-325 Mg) 2 tab Q4H PRN PO 04/17/17 02:00 04/20/17 06:38 (Damari-Colace) 2 tab Q12H PRN PO 04/17/17 02:00 04/20/17 06:36 (Ambien) 5 mg HS PRN PO 04/17/17 02:00 (Zofran Inj) 4 mg Q6H PRN IV PUSH 04/17/17 02:00 04/17/17 11:04 (Heparin Inj) 5,000 units Q12HR SQ 04/17/17 09:00 04/19/17 21:32 Fentanyl/ Bupivacaine HCl 100 ml @ 0 mls/hr TITRATE EPIDURAL 04/17/17 10:45 (Ferrous Sulfate) 325 mg BID PO 04/19/17 21:00 04/19/17 21:32 Assessment/Plan Problem List: (1) delivery delivered ICD Codes: O82 - Encounter for delivery without indication Status: Acute Assessment and Plan POD 3 post op anemia on heparin prophylaxis until discharge today shari out today doing well Discharge Planning POD #3 (Tuesday) Karen Sanchez MD Apr 20, 2017 08:18
[2017-04-20] MEDS ORDERED: OXYC1TAB63 PO ×2 (08:20→11:51)
--- NOTE | 2017-04-20 08:20 | HHI.DCPOC ---
Discharge Care Plan Report Symptoms to Your Doctor -Temperature above 100.5 degrees -Redness, of incision or excessive or foul smelling drainage -Unusual pain or calf pain -Increased vaginal bleeding -Painful or difficulty urinating -Feelings of extreme sadness or anxiety after 2 weeks Goals to Promote Your Health * To prevent worsening of your condition and complications * To maintain your health at the optimal level Directions to Meet Your Goals Take your medications as prescribed Follow your dietary instruction Follow activity as directed Ensure plenty of rest for recovery Drink fluids for hydration Keep your appointments as scheduled Take your immunizations and boosters as scheduled If your symptoms worsen call your PCP, if no PCP go to Urgent Care Center or Emergency Room Smoking is Dangerous to Your Health. Avoid second hand smoke Call the 24-hour crisis hotline for domestic abuse at Karen Sanchez MD Apr 20, 2017 08:20
[2017-04-20 09:03] VITALS: BP 121/56; PULSE 80; RESP 18; TEMP 97.9
[2017-04-20] MEDS: HEPARIN SODIUM - SQ 10,000 UNITS/ML VIAL SQ SCH (09:11)
[2017-04-20] MEDS: FERROUS SULFATE 325 MG (65 MG ELEMENTAL IRON) TAB PO SCH (09:12)
== END 2017-04-20 13:15 | disposition home or self-care (01) | DRG 766 ==
LOC: HOBED 16:15 → H2EA 16:49 → H1EA 04-17 03:45
PROVIDERS: ADMIT Obstetrics & Gynecology; ATTEND Obstetrics & Gynecology
PROC: 10D00Z1 Extraction of Products of Conception, Low, Open Approach (ICD-10-PCS; principal; 2017-04-16)
PROC: 00HU33Z Insertion of Infusion Device into Spinal Canal, Percutaneous Approach (ICD-10-PCS; 2017-04-16)
PROC: 3E0R3CZ (ICD-10-PCS; 2017-04-16)
DX: O75.3 Other infection during labor (principal); E66.9 Obesity, unspecified; B96.89 Other specified bacterial agents as the cause of diseases classified elsewhere; Z37.0 Single live birth; N76.0 Acute vaginitis; Z3A.38 38 weeks gestation of pregnancy; O99.52 Diseases of the respiratory system complicating childbirth; J45.909 Unspecified asthma, uncomplicated; O99.214 Obesity complicating childbirth; O76 Abnormality in fetal heart rate and rhythm complicating labor and delivery; O62.1 Secondary uterine inertia; D64.9 Anemia, unspecified; O99.02 Anemia complicating childbirth
CPT/HCPCS: 59025; 80053; 84112; 85025; 86850; 86900; 86901; 88307; 90715; 99283; J0131; J0690; J1130; J1200; J1644; J1885; J2274; J2405; J2540; J2590; J3010; J7120